=== PATIENT | male | born 1995 | race Caucasian/White ===

== ENCOUNTER 2016-09-05 20:31 | Emergency (ER) | payer OTHER ==
[2016-09-05 20:45] VITALS: BP 123/61
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
[2016-09-05] MEDS ORDERED: IBUPROFEN 600 MG TABLET PO ONE (20:58)
[2016-09-05] MEDS: IBUPROFEN 600 MG TABLET PO STA (21:00)
--- NOTE | 2016-09-05 21:15 | XRAY Preliminary Report ---
Exam: XR Ankle 3 View LT IMPRESSION: Soft tissue swelling and ankle effusion, without acute bony abnormality. [facility] SITE ID: [id number]
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
[2016-09-05] MEDS ORDERED: HYDROcod/ACET 5/325 Prepack 6 PO ONE (21:28)
[2016-09-05] MEDS: HYDROcod/ACET 5/325 Prepack 6 PO STA (21:32)
== END 2016-09-05 21:44 | disposition home or self-care (01) ==
LOC: ED 20:31
DX: S93.402A Sprain of unspecified ligament of left ankle, initial encounter (principal); W03.XXXA Other fall on same level due to collision with another person, initial encounter; Y93.66 Activity, soccer; Y92.322 Soccer field as the place of occurrence of the external cause
CPT/HCPCS: 99283

== ENCOUNTER 2016-10-06 21:39 | Emergency (ER) | payer OTHER ==
[2016-10-06 21:46] VITALS: BP 125/79
[2016-10-06] MEDS ORDERED: HYDROcod/ACET 5/325 Prepack 6 PO STA (21:53)
[2016-10-06] MEDS ORDERED: SILVER SULFADIAZINE CREAM 25 GM TUBE TOP STA (21:53)
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
[2016-10-06] MEDS ORDERED: SILVER SULFADIAZINE CREAM 25 GM TUBE TOP ONE (21:56)
[2016-10-06] MEDS ORDERED: HYDROcod/ACET 5/325 Prepack 6 PO ONE (21:56)
== END 2016-10-06 22:15 | disposition home or self-care (01) ==
LOC: ED 21:39
DX: T22.241A Burn of second degree of right axilla, initial encounter (principal); T22.191A Burn of first degree of multiple sites of right shoulder and upper limb, except wrist and hand, initial encounter; T21.11XA Burn of first degree of chest wall, initial encounter; T20.17XA Burn of first degree of neck, initial encounter; X03.0XXA Exposure to flames in controlled fire, not in building or structure, initial encounter
CPT/HCPCS: 99283; A9270